=== PATIENT | male | born 2000 | race African-American/Black ===

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

== ENCOUNTER 2024-02-19 15:26 | Emergency (ER) | payer SELFPAY, OTHER ==
[2024-02-19] MEDS ORDERED: Ketorolac Tromethamine 30 MG (1 mL) VIAL ONE (15:44)
== END 2024-02-19 16:38 | disposition home or self-care (01) ==
LOC: ERS 15:26
DX: M54.2 Cervicalgia (principal); M54.6 Pain in thoracic spine; F17.290 Nicotine dependence, other tobacco product, uncomplicated; V89.2XXA Person injured in unspecified motor-vehicle accident, traffic, initial encounter
CPT/HCPCS: 72125; 72128; 96372; J1885